=== PATIENT | female | born 2005 | race Caucasian/White ===

== ENCOUNTER 2025-02-18 14:23 | Emergency (ER) | payer OTHER ==
[~2025-02-18] VITALS: Ht 165.1 cm; Wt 60.0 kg
[2025-02-18 14:43] VITALS: O2SAT 100
[2025-02-18 15:14] LABS: BASOPHILS % 0.2 % (0.0-2.0); EOSINOPHILS % 0.8 % (0.0-5.0); HEMATOCRIT. 39.5 % (36.0-48.0); HEMOGLOBIN. 13.1 g/dL (12.0-16.0); LYMPHOCYTES % 14.1 % (20.0-50.0); MEAN CORPUSCULAR HEMOGLOBIN 29.8 pg (28.0-32.0); MEAN CORPUSCULAR HGB CONC 33.2 g/dL (31.0-37.0); MEAN CORPUSCULAR VOLUME 89.8 fL (81.0-99.0); MEAN PLATELET VOLUME 8.2 fl (7.4-10.4); MONOCYTES % 5.7 % (2.0-8.0); NEUTROPHILS % 79.2 % (40.0-76.0); PLATELET 218 x1000/uL (130-400); RED CELL DISTRIBUTION WIDTH 13.3 % (11.6-14.6)
[2025-02-18 15:21] LABS: CHLORIDE 106 mEq/L (98-107); POTASSIUM 3.8 mEq/L (3.5-5.1); SODIUM 138 mEq/L (136-145)
[2025-02-18 15:22] LABS: CARBON DIOXIDE 27 mEq/L (21-32)
[2025-02-18 15:23] LABS: CALCIUM 9.6 mg/dL (8.7-10.4)
[2025-02-18 15:27] LABS: CREATININE 0.5 mg/dL (0.6-1.0); GLUCOSE 92 mg/dL (70-105); UREA NITROGEN BLOOD 8 mg/dL (9-23)
[2025-02-18 15:41] LABS: HCG SCREEN POSITIVE
[2025-02-18] MEDS: METOCLOPRAMIDE HCL 10MG TABLET PO ONE (15:42)
[2025-02-18] MEDS: ACETAMINOPHEN 325MG TABLET PO ONE (15:42)
[2025-02-18 15:45] LABS: CLARITY URINE TURBID (CLEAR); COLOR URINE YELLOW (YELLOW); GLUCOSE URINE TRACE (NEGATIVE); KETONES URINE NEGATIVE (NEGATIVE); LEUKOCYTE ESTERASE URINE NEGATIVE (NEGATIVE); NITRITE URINE NEGATIVE (NEGATIVE); OCCULT BLOOD URINE NEGATIVE (NEGATIVE); PROTEIN URINE NEGATIVE (NEGATIVE); UROBILINOGEN URINE 0.2 E.U./dL (0.2-1.0)
[2025-02-18 16:06] LABS: ALANINE AMINOTRANSFERASE 12 IU/L (10-49); ALBUMIN 4.2 g/dL (3.2-4.8); ASPARTATE AMINOTRANSFERASE 15 IU/L (<34); BILIRUBIN DIRECT 0.3 mg/dL (<=3.0); PROTEIN TOTAL 7.3 g/dL (6.0-8.3)
[2025-02-18 16:07] LABS: AMORPHOUS SEDIMENT URINE 1+ /lpf; BACTERIA URINE TRACE; RBC URINE 0-2 /hpf (0-2); SQUAMOUS EPITHELIAL CELL URINE 1+ /lpf (RARE/1+); WBC URINE 0-2 /hpf (0-2)
[2025-02-18 16:45] LABS: B-HCG QUANTITATIVE 91027 mIU/mL (<6)
[2025-02-18] MEDS ORDERED: PYRI25TA4 MT (17:45)
[2025-02-18 17:50] VITALS: BP 112/70; PULSE 68; RESP 14; TEMP 36.6; O2SAT 100
== END 2025-02-18 18:00 | disposition home or self-care (01) ==
LOC: ER 14:23
DX: O26.891 Other specified pregnancy related conditions, first trimester (principal); R10.9 Unspecified abdominal pain; Z64.0 Problems related to unwanted pregnancy; Z3A.10 10 weeks gestation of pregnancy
CPT/HCPCS: 99284; 76801; 80076; 80048; 81003; 84703; 84702; 83690; 85025; 36415; 76817; J8597